=== PATIENT | female | born 1980 | race Caucasian/White ===

== ENCOUNTER 2017-05-03 05:35 | Day surgery (SDC) | payer OTHER ==
[~2017-05-03] VITALS: Ht 182.9 cm; Wt 71.4 kg
[~2017-05-03 05:35] MED LIST: BIRTHCONTROL; CEFTIN250 MG PO; MACROBID 1100 MG/CAP PO; PYRIDIUM 100MG100 MG PO
[2017-05-03 06:05] VITALS: BP 115/75; PULSE 67; TEMP 97
[2017-05-03] MEDS ORDERED: JULEBER 28 DAY1 EACH PO (06:10)
[2017-05-03] MEDS ORDERED: ADVIL200 MG PO (06:11)
[2017-05-03 09:20] VITALS: BP 108/67; PULSE 62; TEMP 97.6
[2017-05-03 09:35] VITALS: BP 103/76; PULSE 63
[2017-05-03] MEDS ORDERED: ROXICODONE 55 MG/TAB PO (09:40)
[2017-05-03 09:50] VITALS: BP 99/57; PULSE 61
[2017-05-03 10:10] VITALS: BP 99/65; PULSE 73
[2017-05-03 10:40] VITALS: BP 104/66; PULSE 67
== END 2017-05-03 11:41 | disposition home or self-care (01) ==
LOC: SDCO 05:35
DX: K40.90 Unilateral inguinal hernia, without obstruction or gangrene, not specified as recurrent (principal); Z87.891 Personal history of nicotine dependence; F12.90 Cannabis use, unspecified, uncomplicated
CPT/HCPCS: A4314; C1781; J0690; J1100; J1885; J2250; J2405; J2704; J3010; J7120

== ENCOUNTER → 2020-04-16 | Outpatient (CLI) | payer OTHER ==
[~2020-04-16] MED LIST changes: +ADVIL200 MG PO; +JULEBER 28 DAY1 EACH PO; +ROXICODONE 55 MG/TAB PO
== END ==
LOC: COL.RAD 10:30
DX: R22.1 Localized swelling, mass and lump, neck (principal)

== ENCOUNTER → 2021-07-28 | Outpatient (CLI) | payer OTHER | LOC: MC.RAD 10:53 | DX: Z12.31 Encounter for screening mammogram for malignant neoplasm of breast (principal); N64.9 Disorder of breast, unspecified ==

== ENCOUNTER → 2021-07-30 | Outpatient (CLI) | payer OTHER | LOC: MC.RAD 12:54 | DX: N64.9 Disorder of breast, unspecified (principal) ==